=== PATIENT | male | born 1980 | race Caucasian/White ===

== ENCOUNTER 2020-07-27 16:40 | Emergency (ER) | payer BC ==
[~2020-07-27] VITALS: Ht 185.4 cm; Wt 97.7 kg
[2020-07-27] MEDS ORDERED: ketorolac tromethamine 15mg/ml inj. IM ONE (17:15)
[2020-07-27] MEDS ORDERED: bacitracin 15gm ointment TP ONE (17:15)
[2020-07-27] MEDS ORDERED: LIDOcaine 1% W/epiNEPHrine 1:200,000 10ml vial IJ ONE ×2 (17:15→17:50)
[2020-07-27] MEDS ORDERED: TETanus/Pertussis (Acell)/Diphther VAC/PF (Tdap-Adult) 0.5ml syringe IMVAC ONE (17:15)
[2020-07-27] MEDS ORDERED: LIDOcaine/epinephrine/tetracaine TOPICAL sol 3 ML syringe TOP ONE ×2 (17:50)
[2020-07-27] MEDS ORDERED: HYDR-3965 PO (18:37)
[2020-07-27] MEDS ORDERED: CEPH250T PO (18:37)
[2020-07-27] MEDS ORDERED: ONDA4TAB6 PO (18:37)
--- NOTE | 2020-07-27 18:58 | NUR ---
Pt resting in bed, getting sutured and states his pain is under control. Knee immobilizer to be placed and pt refused crutches.
[2020-07-27 19:12] VITALS: BP 116/82
== END 2020-07-27 19:14 | disposition home or self-care (01) ==
LOC: ER 16:41
DX: S81.011A Laceration without foreign body, right knee, initial encounter (principal); S80.211A Abrasion, right knee, initial encounter; S30.811A Abrasion of abdominal wall, initial encounter; Z20.3 Contact with and (suspected) exposure to rabies; Z72.89 Other problems related to lifestyle; Z98.890 Other specified postprocedural states; Z88.2 Allergy status to sulfonamides; Z79.2 Long term (current) use of antibiotics; Z79.899 Other long term (current) drug therapy; V87.7XXA Person injured in collision between other specified motor vehicles (traffic), initial encounter; Y93.89 Activity, other specified; Y92.89 Other specified places as the place of occurrence of the external cause; Y99.8 Other external cause status
CPT/HCPCS: 12002; 73502; 73564; 90471; 90715; 96372; 99284; J1885